=== PATIENT | female | born 1950 | race Caucasian/White ===

== ENCOUNTER 2023-09-05 13:33 | Outpatient (CLI) | payer MEDICARE, SELFPAY ==
--- NOTE | 2023-09-05 14:54 | ECG_ITS ---
Measurements Intervals [place] Rate: 81 P: 57 WI: 204 QRS: -51 QRSD: 94 T: 52 QT: 377 QTc: 440 Interpretive Statements SINUS RHYTHM POSSIBLE LEFT ATRIAL ENLARGEMENT LEFT ANTERIOR FASCICULAR BLOCK BASELINE ARTIFACT- I, II, AVR, AVL ABNORMAL ECG NO PREVIOUS ECG AVAILABLE FOR COMPARISON Electronically Signed On 09-05-2023 15:14:59 MUD LOGGER by Akbar Encarnacion D.O.
[2023-09-05 15:44] LABS: Basophils Absolute Auto 0.1 K/mm3 (0.0-0.1); Basophils Percent Auto 1.1 % (0.2-1.2); Eosinophils Absolute Auto 0.1 K/mm3 (0-0.3); Hematocrit 38.7 % (37.0-47.0); Hemoglobin 12.8 g/dL (12.0-15.0); Immature Granulocyte Absolute 0.01 K/mm3 (0.00-0.031); Immature Granulocyte Percent A 0.2 % (0-0.5); Lymphocytes Absolute Auto 0.95 K/mm3 (0.9-3.2); Lymphocytes Percent Auto 15.5 % (18.3-44.2); Mean Corpuscular HGB Conc 33.1 g/dl (32-36); Mean Corpuscular Hemoglobin 31.8 pg (26-34); Mean Corpuscular Volume 96.3 fl (80-100); Mean Platelet Volume 9.5 fl (7.4-10.4); Monocytes Percent Auto 15.5 % (2.6-8.5); Neutrophils Absolute Auto 4.1 K/mm3 (1.3-6.7); Neutrophils Percent Auto 66.7 % (45.5-73.1); Platelet Count Result 219 k/mm3 (150-375); Red Blood Count 4.02 M/mm3 (4.2-5.4); Red Cell Distribution Width 12.9 % (11.5-14.5); White Blood Count 6.1 K/mm3 (4.5-10.0)
[2023-09-05 15:54] LABS: Anion Gap 6 mmol/L (8-16); Blood Urea Nitrogen 15 mg/dL (7-17); Calcium 9.7 mg/dL (8.4-10.2); Carbon Dioxide 31 mmol/L (22-30); Chloride 88 mmol/L (98-107); Estimated Glomerular Filt Rate > 60; Glucose 96 mg/dL (65-110); Potassium 3.8 mmol/L (3.4-5.0); Sodium 125 mmol/L (137-145)
[2023-09-05 17:00] LABS: MRSA (PCR) NOT DETECTED (NOT DETECTE)
== END 2023-09-05 13:34 | disposition home or self-care (01) ==
PROVIDERS: Anesthesiology; PCP Family Medicine; Visit Provider Orthopaedic Surgery
DX: M17.11 Unilateral primary osteoarthritis, right knee (principal); I10 Essential (primary) hypertension; Z01.818 Encounter for other preprocedural examination; R94.31 Abnormal electrocardiogram [ECG] [EKG]
CPT/HCPCS: 36415; 80048; 85025; 87641; 93005

== ENCOUNTER 2024-02-25 13:32 | Outpatient (CLI) | payer MEDICARE, SELFPAY ==
[2024-02-25 14:59] LABS: Basophils Absolute Auto 0.1 K/mm3 (0.0-0.1); Basophils Percent Auto 0.6 % (0.2-1.2); Eosinophils Absolute Auto 0.1 K/mm3 (0-0.3); Eosinophils Percent Auto 1.7 % (0-4.4); Hematocrit 39.3 % (37.0-47.0); Hemoglobin 12.8 g/dL (12.0-15.0); Immature Granulocyte Absolute 0.03 K/mm3 (0.00-0.031); Immature Granulocyte Percent A 0.4 % (0-0.5); Lymphocytes Absolute Auto 1.11 K/mm3 (0.9-3.2); Lymphocytes Percent Auto 13.6 % (18.3-44.2); Mean Corpuscular HGB Conc 32.6 g/dl (32-36); Mean Corpuscular Hemoglobin 31.3 pg (26-34); Mean Corpuscular Volume 96.1 fl (80-100); Mean Platelet Volume 9.5 fl (7.4-10.4); Monocytes Absolute Auto 0.8 K/mm3 (0.1-0.6); Neutrophils Percent Auto 73.7 % (45.5-73.1); Platelet Count Result 185 k/mm3 (150-375); Red Blood Count 4.09 M/mm3 (4.2-5.4); Red Cell Distribution Width 13.2 % (11.5-14.5); White Blood Count 8.2 K/mm3 (4.5-10.0)
== END 2024-02-25 13:33 | disposition home or self-care (01) ==
LOC: ANHSURGERY 13:38
PROVIDERS: PCP Family Medicine; Visit Provider Orthopaedic Surgery
DX: Z01.818 Encounter for other preprocedural examination (principal); M17.11 Unilateral primary osteoarthritis, right knee
CPT/HCPCS: 36415; 85025

== ENCOUNTER 2024-03-25 02:02 | Day surgery (SDC) | payer MEDICARE, SELFPAY ==
[2024-02-25 13:42] VITALS: BMI 23.7
--- NOTE | 2024-02-25 14:09 | PC.NURSE ---
Report to the Outpatient Waiting Room, entrance under the green pavilion located off [facility], at time 11:30 AM on date __03/25/24 . Planned Procedure Time: __1:30 PM . Time changes happen often and if your time is changed the preop area will call you the afternoon before. - You and your visitor will be asked to self-screen and do not enter if you have any COVID symptoms. - A mask is optional within the hospital at this time. Patients may have clear liquids (water, carbonated beverages, clear teas, apple juice) until 3 hours prior to surgery ( 10:30 AM)with a maximum of 20 ounces. - No food from midnight until time of surgery - Infants may have breast milk until 4 hours before surgery, formula 6 hours prior to surgery. - Children will be allowed to drink immediately following surgery. If applicable, please bring a bottle or sippy cup to assist with drinking. Juice, water, soda, and popsicles are readily available. For infants on formula, please bring formula the day of surgery. Pacifiers are allowed. Take the following medications with a SIP of water the morning of surgery: ___CARVEDILOL,FELODIPINE,LEVOTHYROXINE DO NOT STOP ANY OF YOUR OTHER PRESCRIPTION MEDICATIONS PRIOR TO SURGERY ?EXCEPT THE FOLLOWING Medications to discontinue per physician __HOLD PLAVIX 5 DAYS PRE OP PER DR BARBER/DR MINER. LAST DOSE 03/19/24 HOLD ASPIRIN 7 DAYS PRE OP..LAST DOSE 03/17/24 ___HOLD ALL VITAMINS AND SUPPLEMENTS 3 DAYS PRE OP.LAST DOSE 03/21/24 Please no make-up, nail cypriot, hairspray, perfume, deodorant, or body powder the day of surgery. No jewelry (including any body piercings) or valuables the day of surgery, leave them at home. Please take a shower or bath the night before, or the morning of, surgery with an antibacterial soap. Wear comfortable, loose fitting clothing. Children are encouraged to wear pajamas. - Jewelry must be removed prior to entering the operating room. Rings and piercings that are not removed may be cut off. - The hospital will not accept responsibility for valuables. - Please leave all valuables, including medications, at home the day of surgery. If you are going home after surgery, a licensed bus driver/monitor must drive you home. - NO public transportation without another adult if you receive anesthesia. - We recommend that an adult stay with you for 24 hours following discharge. - We also recommend that you do not drive, make important decision, drink alcoholic beverages, or take any drugs that were not prescribed by your health care provider for at least 24 hours after your discharge time. Follow any additional instructions given to you from your surgeon. If you or anyone in your household have experienced Covid symptoms in the past week, please notify your surgeon or the nurse liaison at the phone number below for possible testing. VERBAL AND WRITTEN instructions given to _PATIENT AND SPOUSE JUS and asked if any additional questions and then verbalized understanding. Patient advised to call surgeon office or pre surgery nurse liaison [phone] if any additional questions.
[2024-02-25 14:28] VITALS: BP 134/87; PULSE 82; RESP 18; TEMP 37.1; O2SAT 99
[2024-03-25] VITALS (7 sets, daily range): BP systolic 113–144; BP diastolic 62–96; PULSE 70–78; RESP 15–20; TEMP 36.1–36.4; O2SAT 95–100
--- NOTE | ~2024-03-25 | XR_ITS ---
EXAMINATION: [id number] DATE: 03/25/2024 11:59 INDICATION: Right knee patellofemoral compartment arthroplasty. TECHNIQUE: 2 views of right knee were obtained. COMPARISON: Right knee radiographs 06/20/2023 FINDINGS: There is a total right knee arthroplasty with patellar resurfacing in near-anatomic alignme nt. No periprosthetic lucency to suggest loosening or infection. No fracture. There are soft tissue g as, consistent with recent surgery. IMPRESSION: 1. Total right knee arthroplasty in near-anatomic alignment. Reviewed, dictated and finalized at location A.
--- NOTE | 2024-03-25 07:24 | WPDHPUPDATE1 ---
History and Physical Update Update Date/Time: 03/25/24 07:24 History and Physical has been reviewed, including an updated exam of the patient. There are NO changes in the patient's condition. Risks, benefits, and alternatives have been discussed and questions answered. Patient agrees to proceed with procedure.
[2024-03-25] MEDS: ACETAMINOPHEN 500 MG TABLET 1000 MG PO (09:30)
[2024-03-25] MEDS: LACTATED RINGERS 1,000 ML 30 ML IV CONT (09:35)
--- NOTE | 2024-03-25 09:37 | WPDANESEPPF ---
Anes - Initial Pre Proc Eval Procedure: Operation Date: 03/25/24 10:30 Proposed Procedures p Right Knee Patella Arthroplasty - Ed Sims MD Date/Time: 03/25/24 09:37 Surgeon: Ed Sims MD Pre Op Diagnosis: patella femoral arthritis right knee Patient Data Age: 74 Gender: F Height: 1.65 m Weight: 64.6 kg Last Vital Signs Temp 98.7 F 02/25/24 14:28 Pulse 82 02/25/24 14:28 Resp 18 02/25/24 14:28 BP 134/87 02/25/24 14:28 Pulse Ox 99 02/25/24 14:28 O2 Del Method Room Air 02/25/24 14:28 Allergies Allergy/AdvReac Type Severity Reaction Status Date / Time No Known Drug Allergies Allergy Unknown Verified 03/14/24 10:38 Home Medications Medication Instructions Recorded Confirmed Type acetaminophen 500 mg tablet 1,000 mg PO Q6H PRN Pain 06/20/23 03/25/24 History (Tylenol Extra Strength) amitriptyline 50 mg tablet 50 mg PO QHS IBS 06/20/23 03/25/24 History atorvastatin 40 mg tablet 40 mg PO DAILY 06/20/23 03/25/24 History benazepril 40 mg tablet 40 mg PO DAILY 06/20/23 03/25/24 History clopidogrel 75 mg tablet (Plavix) 75 mg PO DAILY 06/20/23 03/25/24 History levothyroxine 25 mcg capsule 25 mcg PO DAILY 06/20/23 03/25/24 History Lactobacillus rhamnosus-Bifidobac. 1 cap PO DAILY 09/05/23 03/25/24 History animalis 3 billion cell capsule ([employer]) aspirin 81 mg tablet,delayed 81 mg PO DAILY 02/04/24 03/25/24 History release (Adult Aspirin Regimen) carvedilol 12.5 mg tablet 12.5 mg PO Q12H 02/04/24 03/25/24 History felodipine 10 mg tablet,extended 10 mg PO DAILY 02/04/24 03/25/24 History release 24 hr Patient hx anesthesia problems: post op nausea/vomiting Family hx anesthesia problems: none Results Review: All pre-operative results and documents have been reviewed as part of the pre-operative evaluation. [facility] Past Medical History Medical History History of breast cancer History of bruising easily Hyperlipidemia Hypertension Surgical History Surgical History History of left knee replacement (~2017) History of lumpectomy 2016 2021 History of right knee joint replacement (~2020) Family History Family History Father , 1982 Melanoma Mother , 1989 Aneurysm Social History Social History Smoking status: Never smoker Additional smoking assessment comments: DENIES ANY FORM OF TOBACCO USE Alcohol intake: never Substance use: never Substance use type: does not use Do You Feel Safe in your Home?: Yes Lack of Transportation: No Lack of Food: Never True Current Housing: I Have Housing Concerned About Future Housing: No Difficulty Paying Gas/Electric Bills: No Difficulty Paying for Meds: No Currently Unemployed: No Education: Associate Degree Difficulty w/ Childcare or Family Care: No Living arrangements: with family Spiritual care concerns: No Anes - Eval Final PreProcedure Day of Procedure 03/25/24 09:37 Patient weight: normal Heart: regular rate and rhythm Lungs: clear to auscultation Airway: Mallampati scale class II Neurological: alert and oriented Last oral intake: >/= 8 hours ASA classification: II Emergent: no Anesthetic plan: proceed Anesthesia type and monitoring: general LMA and standard monitoring Results Review: All pre-operative results and documents have been reviewed as part of the pre-operative evaluation. HTN, hypothyroidism, hx of breast ca, prev treated at [facility]. Pt active w walking, no cp or sob. Informed Consent: The patient's anesthetic plan and its attendant risks and benefits were discussed with the patient/family/POA. Questions were solicited and answers provided to the sati
[2024-03-25] MEDS: TRANEXAMIC ACID 1,000MG/ISO100 1,000 MG/100 ML BAG 200 MG IVPB (09:40)
[2024-03-25] MEDS: ceFAZolin 2 GM/D5W 50 ML 2 GM/50 ML BAG IVPB (10:04)
[2024-03-25] MEDS: SODIUM CHLORIDE 0.9% IV 37.7 ML, MORPHINE SULFATE INJ (*CRX) 2 MG, ROPivacaine HCL 1% 2... INFILTRATE (10:43)
--- NOTE | 2024-03-25 10:49 | SUR.OPER ---
culture of right knee sent to lab per PCT Thong Benito handed culture to Leigh in the lab at 1049.
--- NOTE | 2024-03-25 11:04 | SUR.PREOP ---
0900-Discussed code status with pt-pt requests full resuscitation measures if indicated today.
--- NOTE | 2024-03-25 11:28 | W.PM.PROC2 ---
Procedure Note - Detailed Date of Procedure 03/25/24 Pre-op Diagnosis Patello femoral arthritis right knee Post-op Diagnosis Other (1. Patellofemoral arthritis right knee s/p total knee arthroplasty 2. Laxity of total joint arthroplasty) Procedure Performed Revision knee arthroplasty with patellar resurfacing and tibial insert exchange. Surgeon Ed Sims MD Optical Instrument Inspector Madison Torres PA-C Anesthesia General and Regional (subsartorial block) Indications Severe persistent anterior knee pain status post total knee arthroplasty elsewhere without patellar resurfacing. Findings Moderate laxity medial and lateral varus valgus laxity with examination under anesthesia. Extensive patellar erosions. Mild inflammatory fluid without evidence for infection or synovitis. The patella was of her resurfacing with the all-polyethylene cemented implant. The polyethylene was exchanged from the 7 mm to the 8 mm. 9 was not available and the 10 was clearly too tight. The femoral and tibial base plate were stable. No erosive changes or evidence of loosening. Femur was size 6 and tibial size 4. Description of Procedure The patient was brought to the operating room. A general anesthetic was administered. The leg was prepped and draped in the usual sterile fashion. The limb was elevated and the tourniquet inflated to 300 mmHg during initial exposure, and cementation. A longitudinal incision was created along the medial border of the patella and patellar tendon, and a trivector approach to the knee was performed. No medial release was taken. The knee was then flexed. The patella was measured. Patellar resection was carried out with the oscillating saw. The lug holes drilled. The femoral and tibial components were carefully assessed and found to be stable and in good alignment. The polyethylene liner was removed and trialing was performed with the 8 mm and the 10 mm insert. The knee was copiously irrigated with antibiotic solution periodically throughout the procedure. The flexion and extension gaps were very nicely. Range of motion optimal with the 8 mm insert. Pulsatile lavage with you throughout the procedure. A dilute Betadine soak was performed for 3 minutes and irrigated. The real tibial insert was placed followed by cementing the patella. Excess cement was carefully removed. Patellar tracking was carefully assessed. No additional releases were required. The wound was closed with #1 Vicryl suture, #1, 2-0, and 3-0 barbed suture, followed by Steri-Strips. A sterile bulky dressing was applied. Meticulous hemostasis was maintained throughout the procedure. The bipolar cautery device was used. The pain relieving mixture was injected into the periarticular tissues during the procedure. There were no complications. The patient was extubated and brought to the recovery room in stable condition after the application of sterile dressing with Ton bandage. Implants [employer] knee: Polyethylene tibial insert posterior stabilized size 8. 32 mm offset patella polyethylene implant. Estimated Blood Loss 20 Tourniquet Time Total Tourniquet Time: 34 Drains No Pathology None sent Complications No immediate complications Condition Stable Disposition Same day [facility] Billing Surgery - Charge Forward: Surgery Billing
== END 2024-03-25 13:13 | disposition home or self-care (01) ==
PROVIDERS: PCP Family Medicine; Visit Provider Orthopaedic Surgery
PROC: (CPT 27447; principal; 2024-03-25 10:30)
DX: T84.022A Instability of internal right knee prosthesis, initial encounter (principal); M17.11 Unilateral primary osteoarthritis, right knee; Y83.8 Other surgical procedures as the cause of abnormal reaction of the patient, or of later complication, without mention of misadventure at the time of the procedure; I10 Essential (primary) hypertension; E78.5 Hyperlipidemia, unspecified; Z85.3 Personal history of malignant neoplasm of breast; Z79.02 Long term (current) use of antithrombotics/antiplatelets; Z79.82 Long term (current) use of aspirin
CPT/HCPCS: 27486; 36415; 73560; 85025; 87070; 87075; 87205; A9270; C1713; C1776; J0171; J0690; J1100; J1885; J2270; J2405; J2704; J2795; J3010; J7120

== ENCOUNTER 2024-05-13 11:16 | Outpatient (CLI) | payer MEDICARE, SELFPAY ==
--- NOTE | ~2024-05-13 | XR_ITS ---
XR knee RT 3V 05/13/2024 11:41 Indication: Right knee arthroplasty Procedure: 3 views right knee Comparison: 06/20/2023 Findings: There is anatomic alignment. Right knee arthroplasty well seated. No underlying fracture or traumatic malalignment. Cement bone interface is normal. No joint effusion. No foreign bodies. Impression: 1: No significant bone or joint abnormality. Reviewed, dictated and finalized at location B. Impression: 1: No significant bone or joint abnormality.
== END 2024-05-13 11:17 | disposition home or self-care (01) ==
LOC: ANHIMG 11:21
PROVIDERS: PCP Family Medicine; Visit Provider Physician Assistant Surgical
DX: Z47.1 Aftercare following joint replacement surgery (principal); Z96.651 Presence of right artificial knee joint
CPT/HCPCS: 73562